=== PATIENT | male | born 1990 | race Caucasian/White ===

== ENCOUNTER 2017-03-18 12:30 | Emergency (ER) | payer OTHER ==
--- NOTE | 2017-03-19 14:46 | ER ---
ADMIT: 03/18/2017 RM/LOC: ER [facility] MR#: [id number] [address] [id number] BRIANA MONIQUE [address] [place] [address] Emergency Room Report SEX: M AGE: 26 : 1990 DATE: 03/18/2017 HISTORY OF PRESENT ILLNESS: A 26-year-old, presents to emergency room with the left elbow and upper arm redness, swelling. He said it started on Friday. It looks like he might have gotten bitten by an insect. There are 4 entry areas, but he cannot tell. He said he has been taking Benadryl, but not resolved. He is being touching the area of course and it has gotten red, pretty hot, and swollen. He has no past medical history. He is able to move his arm without any difficulty. His vitals are 142/88, heart rate is 80, respirations 18, temp 98.5, O2 sats 100%. IMPRESSIONS: Cellulitis of left elbow, forearm. Given a prescription for Bactrim DS #20. See T-sheet for instructions. ADRIAN Brown / Elliot Salvador MD / modl JOB #: [id number] CC: Elliot Salvador MD, Attending Physician Kevon Talbot MD, Family Physician
== END 2017-03-18 13:40 | disposition home or self-care (01) ==
LOC: ER 12:30
DX: L03.114 Cellulitis of left upper limb (principal); Z79.899 Other long term (current) drug therapy